=== PATIENT | male | born 1990 | race African-American/Black ===

== ENCOUNTER 2017-07-03 04:10 | Emergency (ER) | payer OTHER ==
[~2017-07-03] VITALS: Ht 170.2 cm; Wt 95.5 kg
[2017-07-03 04:50] LABS: BASO % 0.5 % (0.0-1.0); EOS # 0.6 K/mm3 (0.0-0.50); EOS % 5.4 % (0.0-3.0); LARGE UNSTAINED CELL # 0.2 K/mm3 (0.0-0.4); LARGE UNSTAINED CELL % 1.8 % (0.0-4.0); LYMPH # 4.6 K/mm3 (1.5-6.5); LYMPH % 41.2 % (24.0-44.0); MEAN CORPUSCULAR HEMOGLOBIN 31.9 pg (27.0-33.0); MEAN CORPUSCULAR HGB CONC 33.7 g/dl (32.0-36.5); MEAN CORPUSCULAR VOLUME 94.6 fl (80.0-96.0); MONO # 0.5 K/mm3 (0.0-0.8); MONO % 4.2 % (0.0-5.0); NEUTROPHILS % 46.8 % (36.0-66.0); PLATELET COUNT, AUTOMATED 224 k/mm3 (150-450); WHITE BLOOD COUNT 10.6 K/mm3 (4.0-10.0)
[2017-07-03 05:11] LABS: ALBUMIN 3.5 GM/DL (3.2-5.2); ALBUMIN/GLOBULIN RATIO 0.97 (1.00-1.93); ALKALINE PHOSPHATASE 71 U/L (45-117); ALT/SGPT 26 U/L (12-78); AMYLASE 27 U/L (25-115); ANION GAP 9 MEQ/L (8-16); AST/SGOT 16 U/L (15-37); BILIRUBIN,DIRECT 0.1 MG/DL (0.0-0.2); BILIRUBIN,TOTAL 0.6 MG/DL (0.2-1.0); BLOOD UREA NITROGEN 29 MG/DL (7-18); CALCIUM LEVEL 8.2 MG/DL (8.5-10.1); CARBON DIOXIDE LEVEL 24 MEQ/L (21-32); CHLORIDE LEVEL 110 MEQ/L (98-107); CREATININE FOR GFR 0.96 MG/DL (0.70-1.30); GLOMERULAR FILTRATION RATE > 60.0 (>60); GLUCOSE, FASTING 121 MG/DL (70-105); POTASSIUM SERUM 4.3 MEQ/L (3.5-5.1); SODIUM LEVEL 143 MEQ/L (136-145); TOTAL PROTEIN 7.1 GM/DL (6.4-8.2)
[2017-07-03] MEDS ORDERED: NS 1,000 ML IV ONE (06:45)
[2017-07-03] MEDS ORDERED: METOCLOPRAMIDE INJ 10MG/2ML VIAL (J2765) IV ONE (06:45)
[2017-07-03] MEDS ORDERED: PANTOPRAZOLE 40MG INJ (PROTONIX) (C9113) IV ONE (06:45)
[2017-07-03] MEDS ORDERED: ISOVUE-370 76% 100ML VIAL (Q9967) As Ordered ONE (06:50)
--- NOTE | 2017-07-03 07:40 | REPUSA ---
CLINICAL HISTORY: Coffee-ground emesis. TECHNIQUE: Multiple axial, sagittal and coronal CT images were obtained through the abdomen and pelvi s after administration of intravenous contrast material. COMMENTS: Diffusely thickened stomach. The liver is of uniform attenuation without mass or defect. There is no intra or extrahepatic biliary ductal dilatation. The spleen is normal. The gallbladder is within normal limits. The pancreas is of normal contour and attenuation characteristics. There is no evidence of adrenal mass. Both kidneys demonstrate prompt and equal nephrograms. The kidneys are normal in size, shape and conf iguration. There is no evidence of renal or ureteral mass. No renal or ureteral calculi are identifie d. There is no hydroureter or hydronephrosis. No evidence for appendicitis. There is no bowel wall thickening. No evidence for small or large mayra l obstruction. There is no evidence of abdominal ascites or lymphadenopathy. There is no evidence of intrinsic or extrinsic bladder mass. There is no pelvic ascites or lymphadeno zahida. Images of the lung bases show no evidence of pleural or parenchymal mass. There are no pleural effusi ons. The bony structures are free of lytic or blastic lesions. Multilevel degenerative changes are seen in volving the thoracolumbar spine. Scattered calcifications are seen involving the aorta and major bran ches compatible with atherosclerosis. IMPRESSION: Diffusely thickened stomach. Underdistention, peptic ulcer disease versus gastritis. Thank you for your kind referral of this patient.
[2017-07-03] MEDS ORDERED: OMEP40CA2 PO (08:10)
[2017-07-03 08:22] VITALS: BP 146/67
== END 2017-07-03 08:45 | disposition home or self-care (01) ==
LOC: M ED 04:10
DX: R11.2 Nausea with vomiting, unspecified (principal); Z87.19 Personal history of other diseases of the digestive system; J45.909 Unspecified asthma, uncomplicated; Z87.891 Personal history of nicotine dependence
CPT/HCPCS: 74177; 80048; 80076; 82150; 83690; 85025; 86850; 86900; 86901; 96361; 96374; 96375; 99284; C9113; J2765; Q9967

== ENCOUNTER 2017-07-05 23:06 | Inpatient (IN) | payer OTHER ==
[~2017-07-05] VITALS: Ht 170.2 cm; Wt 92.8 kg
[~2017-07-05 23:06] MED LIST: OMEP40CA2 PO
[2017-07-05] MEDS ORDERED: NS 1,000 ML IV ONE (23:30)
[2017-07-06] VITALS (22 sets, daily range): BP systolic 103–136; BP diastolic 54–77
[2017-07-06 00:08] LABS: BASO % 0.5 % (0.0-1.0); EOS # 0.4 K/mm3 (0.0-0.50); EOS % 3.8 % (0.0-3.0); LARGE UNSTAINED CELL # 0.1 K/mm3 (0.0-0.4); LARGE UNSTAINED CELL % 1.3 % (0.0-4.0); LYMPH # 2.8 K/mm3 (1.5-6.5); LYMPH % 24.7 % (24.0-44.0); MEAN CORPUSCULAR HEMOGLOBIN 32.7 pg (27.0-33.0); MEAN CORPUSCULAR HGB CONC 33.7 g/dl (32.0-36.5); MEAN CORPUSCULAR VOLUME 96.8 fl (80.0-96.0); MONO # 0.4 K/mm3 (0.0-0.8); NEUTROPHILS % 65.7 % (36.0-66.0); PLATELET COUNT, AUTOMATED 155 k/mm3 (150-450); RED CELL DISTRIBUTION WIDTH 12.9 % (11.5-14.5); WHITE BLOOD COUNT 10.6 K/mm3 (4.0-10.0)
[2017-07-06 00:18] LABS: ALBUMIN 2.8 GM/DL (3.2-5.2); ALBUMIN/GLOBULIN RATIO 0.97 (1.00-1.93); ALKALINE PHOSPHATASE 50 U/L (45-117); ALT/SGPT 27 U/L (12-78); ANION GAP 5 MEQ/L (8-16); AST/SGOT 26 U/L (15-37); BILIRUBIN,DIRECT < 0.1 MG/DL (0.0-0.2); BILIRUBIN,TOTAL 0.1 MG/DL (0.2-1.0); BLOOD UREA NITROGEN 23 MG/DL (7-18); CALCIUM LEVEL 7.8 MG/DL (8.5-10.1); CARBON DIOXIDE LEVEL 27 MEQ/L (21-32); CHLORIDE LEVEL 111 MEQ/L (98-107); CREATININE FOR GFR 1.04 MG/DL (0.70-1.30); GLOMERULAR FILTRATION RATE > 60.0 (>60); GLUCOSE, FASTING 101 MG/DL (70-105); POTASSIUM SERUM 3.8 MEQ/L (3.5-5.1); SODIUM LEVEL 143 MEQ/L (136-145); TOTAL PROTEIN 5.7 GM/DL (6.4-8.2)
[2017-07-06] MEDS ORDERED: OMEP40CA2 PO (00:57)
[2017-07-06] MEDS ORDERED: ONDANSETRON 4MG/2ML VIAL (J2405) IV PRN (01:15)
[2017-07-06 01:27] LABS: INR 1.16
[2017-07-06] MEDS: PANTOPRAZOLE SODIUM 40 MG in D5W MINI-BAG PLUS 50 ML IV SCH ×5 (01:53→21:15)
--- NOTE | 2017-07-06 02:38 | HPE ---
DATE OF ADMISSION: 07/06/2017 PRIMARY CARE PHYSICIAN: Brionna Nelson. CHIEF COMPLAINT: Hematemesis. HISTORY OF THE PRESENT ILLNESS: The patient is a 27-year-old man who back in 2010 had symptoms of lightheadedness, dizziness, shortness of breath upon exertion while living in [place]. He presented to the emergency room there and had an endoscopy and was found to have low blood levels and received blood transfusions. He had two scopes and tells me that he was found to have two ulcers in his small intestine, as well as one at the gastroesophageal junction as well. He was on omeprazole following this for 6 months and when his symptoms resolved, he was taken off all medications. He was in his usual state of health, he is an active duty soldier, and then on Tuesday, he began to have similar symptoms of lightheadedness when standing and weakness. He presented to the emergency room at that time. He was found to have a hemoglobin of 12.5. He was started on omeprazole. A CT scan of the abdomen and pelvis revealed diffusely thickened stomach, underdistention, peptic ulcer disease versus gastritis and the patient was discharged with followup with Dr. Guerrero. The patient was actually seen in Dr. Guerrero's clinic today and was scheduled for an endoscopy to be conducted on 07/19/2017; however, after eating a pot pie, he began having nausea, vomiting and hematemesis. He was also noted to have some blood in his stool and prompting him to re-present to the emergency room. His hemoglobin was found to be 7.4 down from 13.3 only 2 days earlier with symptoms of anemia. The hospitalist service was called. PAST MEDICAL HISTORY: Gastrointestinal (GI) bleed. Duodenal ulcers. Gastroesophageal ulcers. HOME MEDICATIONS: - omeprazole started on Tuesday ALLERGIES: GRASS and PRIMAQUINE. SURGICAL HISTORY: Esophagogastroduodenoscopy (EGD) as outlined above in 2010. FAMILY HISTORY: No evidence of peptic ulcer disease or bleeding dyscrasias. SOCIAL HISTORY: He smokes slightly less than one pack of cigarettes per day for the last 3 years. Denies alcohol or illicit drug use. He drinks one 24-ounce [employer] Drink per day. REVIEW OF SYSTEMS: 10-point review of systems has been completed but negative other than in the history of the present illness (HPI). PHYSICAL EXAMINATION: VITAL SIGNS: Temperature 99.2, heart rate 92, respiratory rate 20, blood pressure 137/83, oxygen saturation (O2) 100% on room air. GENERAL: He is a very pleasant, muscular, -Faroese man laying flat in bed. He does not appear to be in any acute distress. He is comfortable at this time. HEENT: Cranial nerves II-XII are grossly intact. He has moist mucous membranes. No elevation of central venous pressure (CVP). CARDIOVASCULAR EXAM: S1, S2, regular. No distant heart sounds appreciated. He is not tachycardic. RESPIRATORY EXAM: Clear. ABDOMINAL EXAM: Bowel sounds are present. The abdomen is soft. There is tenderness to palpation in the epigastric region. EXTREMITIES: No clubbing, cyanosis or edema. He is muscular. LABORATORY STUDIES: WBC 10.6, hemoglobin 7.4, platelet count 155. Chemistry panel: Sodium 143, potassium 3.8, chloride 111, bicarbonate 27, BUN 23, creatinine 1.0. IMAGING: As outlined above. ASSESSMENT AND PLAN: This is a 27-year-old man with a gastrointestinal (GI) bleed. Problems: 1. GI bleed. Given his history, there is certainly concern for an upper GI source. He has been seen by Dr. Guerrero today. I recommend Dr. Guerrero be contacted early this morning to see if the patient can undergo inpatient endoscopy. The patient received two units of packed red blood cells for symptomatic anemia, acute blood loss anemia related to GI bleed. The patient will also be started on Protonix drip. Will check orthostatics and admit him to the progressive care unit to Dr. Barron's service. The patient will be kept nothing by mouth (n.p.o.) except for Carafate. Will check a PT/INR and provide him with Zofran as needed. Will hold his home omeprazole as he is receiving a continuous Protonix infusion. After endoscopy, should the patient have continued recurrences, then he could have workup completed through outpatient GI for other potential hypergastric conditions for peptic ulcer disease. 2. Deep vein thrombosis (DVT) prophylaxis. Sequentials and thromboembolism deterrents (TEDs). No pharmacological agents in the setting of bleeding. Early ambulation. DISPOSITION: The patient is admitted to the progressive care unit to Dr. Barron's service who will continue monitoring the patient at 7:00 a.m. [facility]
[2017-07-06] MEDS: SUCRALFATE 1 GM TAB PO SCH ×5 (08:24→21:15)
[2017-07-06 09:58] LABS: BASO % 0.5 % (0.0-1.0); EOS # 0.4 K/mm3 (0.0-0.50); EOS % 4.2 % (0.0-3.0); LARGE UNSTAINED CELL # 0.1 K/mm3 (0.0-0.4); LARGE UNSTAINED CELL % 1.4 % (0.0-4.0); LYMPH # 2.8 K/mm3 (1.5-6.5); LYMPH % 27.2 % (24.0-44.0); MEAN CORPUSCULAR HEMOGLOBIN 31.5 pg (27.0-33.0); MEAN CORPUSCULAR HGB CONC 32.9 g/dl (32.0-36.5); MEAN CORPUSCULAR VOLUME 95.6 fl (80.0-96.0); MONO # 0.4 K/mm3 (0.0-0.8); NEUTROPHILS # 6.2 K/mm3 (1.8-7.7); NEUTROPHILS % 62.8 % (36.0-66.0); PLATELET COUNT, AUTOMATED 148 k/mm3 (150-450); WHITE BLOOD COUNT 9.9 K/mm3 (4.0-10.0)
[2017-07-06 10:17] LABS: ANION GAP 8 MEQ/L (8-16); BLOOD UREA NITROGEN 21 MG/DL (7-18); CALCIUM LEVEL 8.2 MG/DL (8.5-10.1); CARBON DIOXIDE LEVEL 24 MEQ/L (21-32); CHLORIDE LEVEL 113 MEQ/L (98-107); CREATININE FOR GFR 0.88 MG/DL (0.70-1.30); GLOMERULAR FILTRATION RATE > 60.0 (>60); GLUCOSE, FASTING 82 MG/DL (70-105); POTASSIUM SERUM 4.2 MEQ/L (3.5-5.1); SODIUM LEVEL 145 MEQ/L (136-145)
[2017-07-06] MEDS ORDERED: PROPOFOL 200 MG/20 ML VIAL As Ordered ONE (16:06)
[2017-07-06] MEDS ORDERED: LIDOCAINE 2% INJ 100 MG/5 ML SDV (FOR ANES.) As Ordered ONE (16:06)
--- NOTE | 2017-07-06 16:16 | ROOR ---
Patient Name: Sanchez Louis Procedure Date: 07/06/2017 3:44 PM Date of : 1990 Age: 27 Room: [facility] Gender: Male Note Status: Finalized Procedure: Upper Endoscopy + Heater Probe + Biopsies Indications: Active gastrointestinal bleeding Providers: Ervin Guerrero MD Referring MD: KAUR DIETRICH MD Requesting Provider: Medicines: Monitored Anesthesia Care Complications: No immediate complications. Procedure: Pre-Anesthesia Assessment: - The heart rate, respiratory rate, oxygen saturations, blood pressure, adequacy of pulmonary ventilation, and response to care were monitored throughout the procedure. The Endoscope was introduced through the mouth, and advanced to the second part of duodenum. The upper GI endoscopy was accomplished without difficulty. The patient tolerated the procedure well. Findings: The Z-line was irregular and was found 35 cm from the incisors. A small hiatal hernia was present. Moderately severe esophagitis with no bleeding was found 35 cm from the incisors. Biopsies were taken with a cold forceps for Helicobacter pylori testing. No other significant abnormalities were identified in a careful examination of the stomach. One non-bleeding cratered duodenal ulcer with a visible vessel was found in the first portion of the duodenum. Coagulation for bleeding prevention using heater probe was successful. Impression: - Z-line irregular, 35 cm from the incisors. - Small hiatal hernia. - Moderately severe erosive esophagitis. Biopsied. - One non-bleeding duodenal ulcer with a visible vessel. Treated with a heater probe. - The examination was otherwise normal. Recommendation: - Patient has a contact number available for emergencies. The signs and symptoms of potential delayed complications were discussed with the patient. Return to normal activities tomorrow. Written discharge instructions were provided to the patient. - [facility]. - Follow an antireflux regimen. - Await pathology results. - The findings and recommendations were discussed with the referring physician. - The findings and recommendations were discussed with the patient. Ervin Guerrero MD Ervin Guerrero MD 07/06/2017 4:16:20 PM This report has been signed electronically. Number of Addenda: 0 Note Initiated On: 07/06/2017 3:44 PM Estimated Blood Loss: Estimated blood loss: none.
[2017-07-07] MEDS: PANTOPRAZOLE SODIUM 40 MG in D5W MINI-BAG PLUS 50 ML IV SCH (02:23)
[2017-07-07 04:45] VITALS: BP 114/54
[2017-07-07 05:35] LABS: MEAN CORPUSCULAR HEMOGLOBIN 32.2 pg (27.0-33.0); MEAN CORPUSCULAR HGB CONC 34.9 g/dl (32.0-36.5); MEAN CORPUSCULAR VOLUME 92.3 fl (80.0-96.0); RED CELL DISTRIBUTION WIDTH 15.3 % (11.5-14.5); WHITE BLOOD COUNT 7.9 K/mm3 (4.0-10.0)
[2017-07-07 05:45] LABS: ANION GAP 8 MEQ/L (8-16); BLOOD UREA NITROGEN 16 MG/DL (7-18); CALCIUM LEVEL 8.2 MG/DL (8.5-10.1); CARBON DIOXIDE LEVEL 26 MEQ/L (21-32); CHLORIDE LEVEL 110 MEQ/L (98-107); CREATININE FOR GFR 1.01 MG/DL (0.70-1.30); GLOMERULAR FILTRATION RATE > 60.0 (>60); GLUCOSE, FASTING 90 MG/DL (70-105); POTASSIUM SERUM 3.8 MEQ/L (3.5-5.1); SODIUM LEVEL 144 MEQ/L (136-145)
[2017-07-07] MEDS: SUCRALFATE 1 GM TAB PO SCH ×4 (07:46→20:14)
[2017-07-07 08:00] VITALS: BP 121/56
[2017-07-07] MEDS: PANTOPRAZOLE 40MG TAB (PROTONIX) PO SCH ×2 (09:48→20:13)
[2017-07-07 12:30] VITALS: BP 138/72
[2017-07-07 14:00] VITALS: BP 141/68
--- NOTE | 2017-07-07 18:39 | IPN ---
DATE: 07/06/2017 The patient underwent esophagogastroduodenoscopy (EGD) yesterday which showed moderately severe esophagitis with no bleeding at 35 cm from incisors, one non-bleeding crater duodenal ulcer with a visible vessel in the first portion of the duodenum, status post heater probed coagulation, small hiatal hernia. The patient was kept nothing by mouth with ice chips until morning and currently advanced on clear full liquid diet. He denies any recurrent hematemesis, bright red blood per rectum, melanotic stools. Denies dizziness, chest pain, pressure or tightness, palpitations. No issues on telemetry. He remains in sinus rhythm with ventricular rate of 62-73. Afebrile. VITAL SIGNS: Temperature 98.5, pulse 60, respiratory rate 18, blood pressure 114/54, 99% on room air. GENERAL: Awake, alert, and oriented times three. No pallor or icterus. LUNGS: Clear to auscultation. No wheezing, rales, or rhonchi. HEART: S1, S2, sinus rhythm. ABDOMEN: Soft, nontender, nondistended. Positive bowel sounds. EXTREMITIES: No clubbing, cyanosis, or pitting edema. LABORATORY DATA: White count 7.9, hemoglobin 9.7, hematocrit 27.9, platelet count 166. Sodium 144, potassium 3.8, chloride 110, bicarbonate 26, BUN 16, creatinine 1, glucose of 90. EGD 07/06/2017 shows moderately severe esophagitis, small hiatal hernia, non-bleeding duodenal ulcer with visible vessel status post heater probe coagulation. ASSESSMENT AND PLAN: This is a 27-year-old male with history of multiple duodenal ulcers, off proton pump inhibitor (PPI), who presented to the emergency room with symptomatic anemia, found to have a hemoglobin of 7, status post three units of leukocyte reduced red blood cell transfusion. Esophagogastroduodenoscopy (EGD) shows small hiatal hernia, moderately severe esophagitis with no bleeding, one non-bleeding duodenal ulcer with visible vessel treated with heater probe. CURRENT ISSUES: 1. Acute blood loss anemia, secondary to duodenal ulcer, moderately severe erosive esophagitis. The patient is status post esophagogastroduodenoscopy (EGD) and has done well overnight with nothing by mouth and ice chips. Currently advanced on clear full liquid diet and soft mechanical throughout the day today. Hemoglobin and hematocrit remain stable status post three units of red blood cell transfusion. He is continue on Carafate before food and at bedtime as well as proton pump inhibitor (PPI) twice a day with Protonix 40 mg. Biopsies have been taken to rule out Helicobacter (H) pylori. Appreciate Dr. Guerrero's input and help with management. Outpatient followup at hospital discharge. 2. Moderately severe erosive esophagitis/duodenal ulcer, non-bleeding with visible vessel status post heater probe coagulation. The patient should followup with Dr. Guerrero as outpatient. Continue on Carafe, PPI twice a day. Advance diet. Monitor hemoglobin and hematocrit. He appears to be stabilized after three units of red blood cell transfusion. 3. Deep vein thrombosis (DVT) prophylaxis with compression stockings. DISPOSITION: The patient will be transferred to medical/surgical floor. Await recommendations from Dr. Guerrero. If the patient cannot be discharged today, we will monitor for another 24 hours.
[2017-07-07 20:30] VITALS: BP 137/62
[2017-07-07 20:42] VITALS: BP 131/58
[2017-07-08] VITALS: BP 117/56
[2017-07-08 07:03] LABS: MEAN CORPUSCULAR HEMOGLOBIN 31.4 pg (27.0-33.0); MEAN CORPUSCULAR HGB CONC 33.7 g/dl (32.0-36.5); MEAN CORPUSCULAR VOLUME 93.4 fl (80.0-96.0); RED CELL DISTRIBUTION WIDTH 15.1 % (11.5-14.5); WHITE BLOOD COUNT 6.8 K/mm3 (4.0-10.0)
[2017-07-08 07:22] LABS: ANION GAP 9 MEQ/L (8-16); BLOOD UREA NITROGEN 14 MG/DL (7-18); CALCIUM LEVEL 8.5 MG/DL (8.5-10.1); CARBON DIOXIDE LEVEL 26 MEQ/L (21-32); CHLORIDE LEVEL 110 MEQ/L (98-107); CREATININE FOR GFR 1.04 MG/DL (0.70-1.30); GLOMERULAR FILTRATION RATE > 60.0 (>60); GLUCOSE, FASTING 91 MG/DL (70-105); POTASSIUM SERUM 3.9 MEQ/L (3.5-5.1); SODIUM LEVEL 145 MEQ/L (136-145)
[2017-07-08] MEDS ORDERED: PANT40TA2 PO (07:24)
[2017-07-08] MEDS ORDERED: SUCR1TA PO (07:24)
[2017-07-08 08:00] VITALS: BP 136/67
[2017-07-08] MEDS: SUCRALFATE 1 GM TAB PO SCH ×2 (08:18→12:01)
[2017-07-08] MEDS: PANTOPRAZOLE 40MG TAB (PROTONIX) PO SCH (09:35)
--- NOTE | 2017-07-09 12:51 | DSES ---
DATE OF ADMISSION: 07/06/2017 DATE OF DISCHARGE: 07/08/2017 TOOL AND CUTTER GRINDER: Dr. Ervin Guerrero, Finished Cloth Checker. PROCEDURES: Esophagogastroduodenoscopy (EGD). DISCHARGE DIAGNOSES: Duodenal ulcer. Small hiatal hernia. Moderate severe esophagitis. DISCHARGE MEDICATIONS: - Protonix 40 mg twice daily - Carafate 1 gram by mouth before meals and at bedtime DISCHARGE INSTRUCTIONS: Avoid non-steroidal anti-inflammatory drugs (NSAID)s. Acetaminophen for pain relief. Immediate followup with primary care physician and Dr. Guerrero to discuss pathology reports. HOSPITAL COURSE: This is a 27-year-old male with history of multiple duodenal ulcers in the past. Has been off PPI for several months. Presents to the emergency room with symptomatic anemia. Found to have hemoglobin of 7 with black tatty stools and hematemesis. He was transfused 3 units of leukocyte reduced red blood cell transfusion with subsequent improvement in hemoglobin to discharge of 9.6 and hematocrit of 28.6. He underwent EGD, found to have a small hiatal hernia and moderately severe esophagitis and one small duodenal ulcer which was cauterized using a heater probe. Patient was instructed to advance diet slowly, placed on a PPI initially as a drip and currently at 40 mg orally twice daily of Protonix as well as Carafate 1 gram before meals and at hour of sleep. Patient has improvement over the next 48 hours. No repeat episodes of black tarry stools or hematemesis. Tolerating his diet well with soft mechanical diet. Followup with Dr. Guerrero as outpatient to discuss the pathology reports from biopsy of the EGD, rule out H. Pylori antibody. LABS ON DISCHARGE: White count 6.8, hemoglobin 9.6, hematocrit 28.6, platelet count 204. Sodium 145, potassium 3.9, chloride 110, bicarbonate 26, BUN 14, creatinine 1, glucose 91, calcium 8.5. Hemoccult stool was positive. CT abdomen and pelvis 07/03/2017: Diffusely thick stomach on distention, peptic ulcer disease versus gastritis. TIME SPENT ON DISCHARGE: 30 minutes. MTDD
--- NOTE | 2017-07-09 20:48 | CR ---
DATE OF CONSULTATION: 07/06/2017 REASON FOR CONSULTATION: This is a 27-year-old white male who was seen in my office previously for a history of lightheadedness and dizziness. 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 He received blood in 2010. He had a CT scan of the abdomen which showed thickened stomach wall of unclear reason. He was stable in the office yesterday and had a previous CT which showed inflammation of the stomach. Upper endoscopy was scheduled for July. Right now he presented with overnight with history of hematemesis and his hemoglobin fell to 7.4. No apparent complaints of abdominal pain, weight loss, fevers, night sweats, or shaking chills. PAST MEDICAL HISTORY: As above. GI bleeding previously with ulcers. MEDICATIONS: The patient started omeprazole on Tuesday. ALLERGIES: PRIMAQUINE. PAST SURGICAL HISTORY: As above. Esophagogastroduodenoscopy (EGD) in 2010. FAMILY HISTORY: Noncontributory. SOCIAL HISTORY: The patient smokes less than a Pack of cigarettes a day over the last three years. Alcohol: Denies alcohol abuse. REVIEW OF SYSTEMS: Noncontributory. PHYSICAL EXAMINATION: GENERAL: Well-developed, well-nourished male in no acute distress. Appears stated age. CHEST: Clear to auscultation. CARDIOVASCULAR: Showed regular rhythm, no murmurs or gallops. Normal physiological split S1 to S2. ABDOMEN: Soft, nontender. No masses. No guarding, rebound or hepatosplenomegaly, with bowel sounds positive. EXTREMITIES: No cyanosis, clubbing or edema. Ad's negative. LABORATORY DATA ON ADMISSION: Again showed a hemoglobin 7.4, hematocrit 22.0. The patient will be given packed cells to replenish this. His coagulation profile was normal. INR 1.16. Chemistry was completely normal with albumin 2.8. Liver functions were normal. BUN was 23, creatinine was one. ANALYSIS: 1. Hematemesis. 2. Anemia of unknown etiology at the present time. PLAN: 1. Maintain the patient on Protonix IV. 2. Transfuse as needed. 3. Upper endoscopy will be scheduled.
== END 2017-07-08 12:15 | disposition home or self-care (01) | DRG 384 ==
LOC: M ED 23:06 → EDBD 23:06 → M ED INP 07-06 01:02 → M PCU 07-06 16:50 → M MSPAV 07-07 12:26 → M PED 07-07 20:35
PROVIDERS: ADMIT Internal Medicine; ATTEND General Practice
PROC: 0D598ZZ Destruction of Duodenum, Via Natural or Artificial Opening Endoscopic (ICD-10-PCS; 2017-07-06)
PROC: 30233N1 Transfusion of Nonautologous Red Blood Cells into Peripheral Vein, Percutaneous Approach (ICD-10-PCS; 2017-07-06)
PROC: 0DB78ZX Excision of Stomach, Pylorus, Via Natural or Artificial Opening Endoscopic, Diagnostic (ICD-10-PCS; principal; 2017-07-06 15:12)
DX: K26.9 Duodenal ulcer, unspecified as acute or chronic, without hemorrhage or perforation (principal); D62 Acute posthemorrhagic anemia; K20.9 Esophagitis, unspecified; K44.9 Diaphragmatic hernia without obstruction or gangrene; Z79.899 Other long term (current) drug therapy; Z88.8 Allergy status to other drugs, medicaments and biological substances; J30.1 Allergic rhinitis due to pollen; F17.210 Nicotine dependence, cigarettes, uncomplicated

== ENCOUNTER 2017-10-08 22:05 | Inpatient (IN) | payer OTHER ==
[~2017-10-08] VITALS: Ht 170.2 cm; Wt 88.9 kg
[~2017-10-08 22:05] MED LIST changes: +PANT40TA2 PO; +SUCR1TA PO
[2017-10-08] MEDS ORDERED: PANTOPRAZOLE 40MG INJ (PROTONIX) (C9113) IV ONE (23:15)
[2017-10-08] MEDS ORDERED: NS 1,000 ML IV ONE (23:15)
[2017-10-08 23:38] LABS: BASO # 0.1 10^3/uL (0.0-0.2); BASO % 0.4 % (0.0-1.0); EOS # 0.4 10^3/uL (0.0-0.50); EOS % 3.8 % (0.0-3.0); IMMATURE GRANULOCYTE % 0.3 % (0-0); LYMPH # 1.9 10^3/uL (1.5-6.5); LYMPH % 17.1 % (24.0-44.0); MEAN CORPUSCULAR HEMOGLOBIN 22.9 pg (27.0-33.0); MEAN CORPUSCULAR HGB CONC 30.6 g/dl (32.0-36.5); MEAN CORPUSCULAR VOLUME 74.8 fl (80.0-96.0); MONO # 0.7 10^3/uL (0.0-0.8); MONO % 6.2 % (0.0-5.0); NEUTROPHILS # 8.1 10^3/uL (1.8-7.7); NEUTROPHILS % 72.2 % (36.0-66.0); PLATELET COUNT, AUTOMATED 186 10^3/uL (150-450); RED CELL DISTRIBUTION WIDTH 19.7 % (11.5-14.5); WHITE BLOOD COUNT 11.3 10^3/uL (4.0-10.0)
[2017-10-08 23:49] LABS: INR 1.29
[2017-10-08] MEDS ORDERED: PANT40TA2 PO (23:59)
[2017-10-08] MEDS ORDERED: SUCR1TA PO (23:59)
[2017-10-09] VITALS (9 sets, daily range): BP systolic 101–134; BP diastolic 53–75
[2017-10-09 01:31] LABS: ALBUMIN 3.5 GM/DL (3.2-5.2); ALBUMIN/GLOBULIN RATIO 0.85 (1.00-1.93); ALKALINE PHOSPHATASE 71 U/L (45-117); ALT/SGPT 19 U/L (12-78); ANION GAP 7 MEQ/L (8-16); AST/SGOT 16 U/L (7-37); BILIRUBIN,DIRECT < 0.1 MG/DL (0.0-0.2); BILIRUBIN,TOTAL 0.3 MG/DL (0.2-1.0); BLOOD UREA NITROGEN 24 MG/DL (7-18); CALCIUM LEVEL 8.6 MG/DL (8.5-10.1); CARBON DIOXIDE LEVEL 27 MEQ/L (21-32); CHLORIDE LEVEL 106 MEQ/L (98-107); CREATININE FOR GFR 0.92 MG/DL (0.70-1.30); GLOMERULAR FILTRATION RATE > 60.0 (>60); GLUCOSE, FASTING 93 MG/DL (70-105); POTASSIUM SERUM 4.2 MEQ/L (3.5-5.1); SODIUM LEVEL 140 MEQ/L (136-145); TOTAL PROTEIN 7.6 GM/DL (6.4-8.2)
--- NOTE | 2017-10-09 03:52 | HPE ---
DATE OF ADMISSION: 10/09/2017 The patient, Sanchez Louis, is a 27-year-old male. Patient comes in with a chief complaint of two episodes of bloody vomiting. HISTORY OF PRESENT ILLNESS: The patient has a recent history of gastrointestinal (GI) bleed with a duodenal ulcer and esophagitis. Patient recently discharged from our institution for that problem. Patient notes that today he had one episode of what he describes as bright red blood, hematemesis and one episode of coffee-ground emesis. Patient knew that given his history he should come to the emergency department (ED). Patient came in to the ED. Patient denies any constitutional symptoms. Denies any abdominal pain except when we press on his abdomen for physical exam. Patient to be admitted to medicine and evaluated by GI in the morning. REVIEW OF SYSTEMS: Patient does not complain of any other acute complaints on complete 10-system review. ALLERGIES: Patient with allergy to GRASS and PRIMAQUINE. Patient's home medications include pantoprazole and sucralfate, both to be continued. Patient without significant family history as per the patient. Patient is a light smoker, says he smokes up to three cigarettes a day. Non-drinker. LABORATORIES: WBC 11.3, hemoglobin and hematocrit 9.7/31.7, which is stable from his last checks prior to discharge. Platelet count is 186. Coagulation panel: PT 16.4, INR 1.29, aPTT 32.5. Sodium is 140, potassium 4.2, chloride 106, carbon dioxide 27, BUN/creatinine is 24/0.9, BUN elevated most likely secondary to GI bleed. IMAGING: Abdominal x-ray shows no apparent free air. ASSESSMENT AND PLAN: Patient is a 27-year-old male with previous medical history as noted above. Patient comes in with complaint of new onset gastrointestinal (GI) bleed that is recurrent from previous history. Continue with proton pump inhibitors (PPIs). To be evaluated by GI in the morning. Deep venous thrombosis (DVT) prophylaxis is not indicated at this time. Patient is ambulatory. Chemical prophylaxis would be contraindicated. Patient with active bleed. Gastroesophageal reflux disease (GERD) and GI prophylaxis with history of duodenal ulcer and esophagitis. Continue PPIs as noted above. Given the patient's active GI bleeding symptoms, as well as the need to monitor complete blood count (CBC), will do every six at this time, I believe patient likely to be here for greater than two midnights. Patient's dosing for PPIs will be intravenous (IV) twice a day secondary to GI recommendations. Patient to remain nothing by mouth pending GI evaluation. I first saw patient 10/09/2017.
[2017-10-09] MEDS: NS 1,000 ML IV SCH ×2 (04:24→12:47)
[2017-10-09] MEDS: SUCRALFATE 1 GM TAB PO SCH ×3 (05:52→17:28)
[2017-10-09 06:19] LABS: MEAN CORPUSCULAR HEMOGLOBIN 23.1 pg (27.0-33.0); MEAN CORPUSCULAR HGB CONC 30.9 g/dl (32.0-36.5); MEAN CORPUSCULAR VOLUME 74.8 fl (80.0-96.0); PLATELET COUNT, AUTOMATED 174 10^3/uL (150-450); RED CELL DISTRIBUTION WIDTH 19.6 % (11.5-14.5); WHITE BLOOD COUNT 8.9 10^3/uL (4.0-10.0)
[2017-10-09 06:25] LABS: INR 1.19
[2017-10-09 06:36] LABS: ALBUMIN 3.2 GM/DL (3.2-5.2); ALBUMIN/GLOBULIN RATIO 0.91 (1.00-1.93); ALKALINE PHOSPHATASE 69 U/L (45-117); ALT/SGPT 14 U/L (12-78); ANION GAP 7 MEQ/L (8-16); AST/SGOT 14 U/L (7-37); BILIRUBIN,TOTAL 0.5 MG/DL (0.2-1.0); BLOOD UREA NITROGEN 22 MG/DL (7-18); CALCIUM LEVEL 8.6 MG/DL (8.5-10.1); CARBON DIOXIDE LEVEL 25 MEQ/L (21-32); CHLORIDE LEVEL 110 MEQ/L (98-107); GLOMERULAR FILTRATION RATE > 60.0 (>60); GLUCOSE, FASTING 89 MG/DL (70-105); POTASSIUM SERUM 3.9 MEQ/L (3.5-5.1); SODIUM LEVEL 142 MEQ/L (136-145); TOTAL PROTEIN 6.7 GM/DL (6.4-8.2)
[2017-10-09] MEDS ORDERED: PANTOPRAZOLE 40MG INJ (PROTONIX) (C9113) IV SCH (09:00)
--- NOTE | 2017-10-09 09:59 | REP ---
Clinical: Epigastric and abdominal pain. Technique: Upright view of the chest with supine and upright views of the abdomen and pelvis. Findings: Frontal upright view of the chest demonstrates no acute cardiopulmonary process or free air below the diaphragm to suspect pneumoperitoneum. Supine and upright views of the abdomen and pelvis demonstrate nonspecific bowel gas pattern without obstruction or perforation. No organomegaly. No abnormal calcifications. Skeletal structures normal for age. Impression: Nonspecific bowel gas pattern. Signed by Abhishek Bui MD 10/09/2017 09:51 A
[2017-10-09 12:04] LABS: MEAN CORPUSCULAR HEMOGLOBIN 22.9 pg (27.0-33.0); MEAN CORPUSCULAR HGB CONC 30.3 g/dl (32.0-36.5); MEAN CORPUSCULAR VOLUME 75.7 fl (80.0-96.0); PLATELET COUNT, AUTOMATED 187 10^3/uL (150-450); RED CELL DISTRIBUTION WIDTH 19.8 % (11.5-14.5); WHITE BLOOD COUNT 7.5 10^3/uL (4.0-10.0)
--- NOTE | 2017-10-09 16:48 | CR.PDOC ---
[facility] Consultation Consultation DATE OF CONSULTATION: Oct 09, 2017 at 15:05 Primary physician/ hospitalist: Dr. Villa Reason for consult: GI bleeding. Hemetemsis. HPI: 27 year old male with no medical comorbidities, with recurrent episodes of upper GI bleeding inpast ( atleast twice last one in June 2017) came to ER for complaints of acute onset epigastric discomfort and vomiting of blood and another episode of coffee ground emesis. IN ER noted with anemia and GI was consulted for the same. Patient reports that he felt very weak after the episodes and currently feeling better. No further episodes of vomiting. Patient reports being compliant with Pantoprazole and denies using any OTC medications and Pain medications/ NSAIDs.. OFF note: patient reports similar episodes atleast twice in past and said he was tod possibility of excessive acid secretion but never was confirmed of the gastrinoma. Pertinent negative GI symptoms: Patient denies diarrhea, loss of appetite, early satiety or unintentional weight loss. No history of melena or hematochezia. Patient reports regular bowel movements. Review of Systems: GI: as stated above CVS: No chest pain, No palpitations, No leg swelling. RS: No Shortness of breath, No Wheezing, no cough ADMISSION NURSE: No dizziness, No motor weakness, No sensory problems Hematology: No bruising, No gum bleeding, Musculoskeletal: No joint pain, ambulating well. Skin: No rash : No hematuria, No burning sensation of the urine ENT: No ear discharge/ pain, No dysphagia. Eyes: No photophobia. Home medications: reviewed. Antithrombotic agents - None Medical h/o: As above. Surgical h/o: None on abdomen. Social h/o: Alcohol Denies , smokes cigarettes. , IVDA/ drugs Denies. . Family h/o of GI cancers - None Prior Endoscopies: --- EGD twice 2009 ( outside [facility]) and [address] Guerrero Noted duodenal ulcer treated with heater probe. Small hiatal hernia, esophagitis. H. pylori negative. --- Colonoscopy None. Prior GI evaluation: Follows with Dr. Guerrero. Exam: Vitals: reviewed General: Alert and oriented x 3, not in distress HEENT: Mild pallor, no icterus. Normal oropharynx, NO cervical lymph nodes. Chest: symmetric with bilateral clear air entry, CVS: S1, S2 heard, normal, no murmurs . Abdomen: non-distended, no surgical scars, soft, non-tender, no palpable masses , normal bowel sounds heard.. Extremities: no pedal edema, pulses palpable. ADMISSION NURSE: no focal motor or sensory deficits. Moves all extremities Skin: no rash. Labs: reviewed. Noted anemia with H/ H . Imaging: reviewed Impression: - Acute episode of hematemesis and coffee ground emesis Likely from PUD . Need to r/o AVM. Vs MWT. - Anemia likely from acute GI blood loss. Recommendations: - Patient educated about the test results, possible differential diagnoses and All questions answered. - Will continue with Pantoprazole drip/ intermittent pushes for now. - Will schedule for urgent EGD today. - The procedure, indications, risks (bleeding, perforation, infection, hypotension, respiratory depression, allergy, need for endotracheal intubation, surgery, colostomy, cardiac arrest, even ), benefits, limitations (e.g., missing a lesion), and all other alternatives (including no intervention) were explained to the patient who understood and agreed for the procedure. - Based on the EGD findings will need further work up for Possible hypergastrinemia and gastrinoma. Plan of care discussed with patient and primary team. Patient verbalized understanding and agreed with the plan. Allergies Coded Allergies: Grass (Verified Allergy, Unknown, 10/08/17) Primaquine (Verified Allergy, Unknown, unknown, 10/08/17) told by not to take this medication Home Medications Scheduled Pantoprazole Sodium (Pantoprazole Sodium) 40 Mg Tab, 40 MG PO BID, (Reported) Sucralfate (Carafate) 1 Gm Tab, 1 GM PO ACHS, (Reported) CLARISSA PARISI MD Oct 09, 2017 16:48
[2017-10-09 18:03] LABS: MEAN CORPUSCULAR HEMOGLOBIN 22.9 pg (27.0-33.0); MEAN CORPUSCULAR HGB CONC 30.3 g/dl (32.0-36.5); MEAN CORPUSCULAR VOLUME 75.4 fl (80.0-96.0); PLATELET COUNT, AUTOMATED 172 10^3/uL (150-450); RED CELL DISTRIBUTION WIDTH 19.8 % (11.5-14.5); WHITE BLOOD COUNT 6.9 10^3/uL (4.0-10.0)
[2017-10-09] MEDS ORDERED: PROPOFOL 200 MG/20 ML VIAL As Ordered ONE (18:45)
[2017-10-09] MEDS ORDERED: LIDOCAINE 2% INJ 100 MG/5 ML SYRINGE As Ordered ONE (18:45)
[2017-10-09] MEDS ORDERED: PANTOPRAZOLE SODIUM 40 MG in D5W 50 ML IV STA (19:08)
--- NOTE | 2017-10-09 19:24 | ROOR ---
Patient Name: Sanchez Louis Procedure Date: 10/09/2017 6:28 PM Date of : 1990 Age: 27 Gender: Male Note Status: Finalized Procedure: Upper GI endoscopy Indications: Suspected upper gastrointestinal bleeding, Hematemesis Providers: Antwan Chavez MD Referring MD: Hubert Villa Md Requesting Provider: Medicines: Monitored Anesthesia Care Complications: No immediate complications. Procedure: Pre-Anesthesia Assessment: - Prior to the procedure, a History and Physical was performed, and patient medications and allergies were reviewed. The patient is competent. The risks and benefits of the procedure and the sedation options and risks were discussed with the patient. All questions were answered and informed consent was obtained. Patient identification and proposed procedure were verified by the physician, the nurse and the anesthesiologist in the procedure room. Mental Status Examination: alert and oriented. Airway Examination: normal oropharyngeal airway and neck mobility. Respiratory Examination: clear to auscultation. CV Examination: normal. Prophylactic Antibiotics: The patient does not require prophylactic antibiotics. Prior Anticoagulants: The patient has taken no previous anticoagulant or antiplatelet agents. ASA Grade Assessment: II - A patient with mild systemic disease. After reviewing the risks and benefits, the patient was deemed in satisfactory condition to undergo the procedure. The anesthesia plan was to use monitored anesthesia care (MAC). Immediately prior to administration of medications, the patient was re-assessed for adequacy to receive sedatives. The heart rate, respiratory rate, oxygen saturations, blood pressure, adequacy of pulmonary ventilation, and response to care were monitored throughout the procedure. The physical status of the patient was re-assessed after the procedure. The Endoscope was introduced through the mouth, and advanced to the second part of duodenum. The upper GI endoscopy was accomplished without difficulty. The patient tolerated the procedure well. Findings: A small hiatal hernia was present. The entire examined stomach was normal. One non-bleeding cratered duodenal ulcer with oozing hemorrhage (Chau Class Ib) was found in the first portion of the duodenum. The lesion was 10 mm in largest dimension. Coagulation for hemostasis using heater probe was successful. Estimated blood loss was minimal. Localized mild mucosal changes characterized by nodularity and altered texture were found in the duodenal bulb. Biopsies were taken with a cold forceps for histology. Verification of patient identification for the specimen was done by the physician and nurse using the patient's name, date and medical record number. Estimated blood loss was minimal. Impression: - Small hiatal hernia. - Normal stomach. - One non-bleeding duodenal ulcer with oozing hemorrhage (Chau Class Ib). Treated with a heater probe. - Mucosal changes in the duodenum. Biopsied. Recommendation: - Patient has a contact number available for emergencies. The signs and symptoms of potential delayed complications were discussed with the patient. Return to normal activities tomorrow. Written discharge instructions were provided to the patient. - Clear liquid diet for 1 day, then advance as tolerated to resume previous diet. - Continue present medications. - Give Protonix (pantoprazole): initiate therapy with 80 mg IV bolus, then 8 mg/hr IV by continuous infusion for 1 day. - Use Protonix (pantoprazole) 40 mg PO twice daily - to be taken in morning (1/2 hour before breakfast) and at bedtime ( atleast 3 hours after last meal) for 3 months. - Return to GI clinic in 2 weeks. - Return to primary care physician. Attending Participation: I personally performed the entire procedure. Antwan Chavez MD Antwan Chavez MD 10/09/2017 7:24:19 PM This report has been signed electronically. Number of Addenda: 0 Note Initiated On: 10/09/2017 6:28 PM Estimated Blood Loss: Estimated blood loss was minimal.
[2017-10-09] MEDS ORDERED: PANTOPRAZOLE SODIUM 40 MG in D5W 50 ML IV SCH (20:00)
[2017-10-09] MEDS ORDERED: PANTOPRAZOLE 40MG INJ (PROTONIX) (C9113) IV ONE (20:30)
[2017-10-09] MEDS: PANTOPRAZOLE SODIUM IV SCH (20:52)
[2017-10-09] MEDS: MATE ADAPTER IV SCH (20:52)
[2017-10-09] MEDS: D5W IV SCH (20:52)
[2017-10-10] VITALS (8 sets, daily range): BP systolic 108–134; BP diastolic 44–66
[2017-10-10] LABS: MEAN CORPUSCULAR HEMOGLOBIN 22.9 pg (27.0-33.0); MEAN CORPUSCULAR HGB CONC 30.4 g/dl (32.0-36.5); MEAN CORPUSCULAR VOLUME 75.3 fl (80.0-96.0); PLATELET COUNT, AUTOMATED 170 10^3/uL (150-450); RED CELL DISTRIBUTION WIDTH 19.7 % (11.5-14.5); WHITE BLOOD COUNT 6.4 10^3/uL (4.0-10.0)
[2017-10-10] MEDS: SUCRALFATE 1 GM TAB PO SCH ×5 (00:52→23:45)
[2017-10-10] MEDS: MATE ADAPTER IV SCH ×5 (01:28→21:09)
[2017-10-10] MEDS: PANTOPRAZOLE SODIUM IV SCH ×5 (01:28→21:09)
[2017-10-10] MEDS: D5W IV SCH ×5 (01:28→21:09)
[2017-10-10 06:04] LABS: MEAN CORPUSCULAR HEMOGLOBIN 22.8 pg (27.0-33.0); MEAN CORPUSCULAR HGB CONC 30.5 g/dl (32.0-36.5); MEAN CORPUSCULAR VOLUME 74.8 fl (80.0-96.0); PLATELET COUNT, AUTOMATED 174 10^3/uL (150-450); RED CELL DISTRIBUTION WIDTH 19.9 % (11.5-14.5); WHITE BLOOD COUNT 5.9 10^3/uL (4.0-10.0)
[2017-10-10 06:10] LABS: INR 1.23
[2017-10-10 12:05] LABS: MEAN CORPUSCULAR HEMOGLOBIN 22.9 pg (27.0-33.0); MEAN CORPUSCULAR HGB CONC 30.5 g/dl (32.0-36.5); MEAN CORPUSCULAR VOLUME 75.2 fl (80.0-96.0); PLATELET COUNT, AUTOMATED 182 10^3/uL (150-450); RED CELL DISTRIBUTION WIDTH 20.2 % (11.5-14.5)
[2017-10-10] MEDS ORDERED: PANTOPRAZOLE 40MG INJ (PROTONIX) (C9113) As Ordered ONE (16:16)
--- NOTE | 2017-10-10 17:41 | IPN ---
DATE: 10/10/2017 SUBJECTIVE: The patient is seen and examined in the room today. The patient tolerated the upper endoscopy well without any issue. The patient denies any recurrence of upper GI bleed. The patient denies any dizziness, lightheadedness, chest pain, or shortness of breath. No overnight events reported. The patient tolerated diet well. OBJECTIVE : VITAL SIGNS: Temperature is 97.4, pulse is 66, respiration rate is 16, blood pressure is 108/44, pulse oximetry is 99% on room air. GENERAL: No sign of acute distress. Resting comfortably in bed. Alert and oriented times three. HEENT: Normocephalic, atraumatic. Extraocular motors grossly intact. CARDIOVASCULAR: Positive S1, S2. Regular rate. LUNGS: Clear to auscultation bilaterally. ABDOMEN: Soft, nontender, nondistended. Bowel sounds present. EXTREMITIES: No edema. No sign of cyanosis. LABORATORY DATA: WBC 6, hemoglobin 9.7, hematocrit 31.8, platelet count is 182. Sodium is 142, potassium 3.9, chloride 110, carbon dioxide 25, BUN 22, creatinine 0.9, GFR greater than 60, fasting glucose 89, calcium is 8.6, total bilirubin is 0.5, AST 14, ALT 14, alkaline phosphatase 69, total protein is 6.7, albumin is 3.2. ASSESSMENT AND PLAN: 1. Acute upper GI bleed. The patient had upper endoscopy performed by GI specialist, Dr. Chavez, on 10/09/2017. The patient was found to have duodenal ulcer with oozing hemorrhages, status post heated probe. Case discussed with Dr. Chavez, recommend 24 hour observation. If the patient does not have any recurrence of symptoms and the patient remains stable, the patient may be discharged tomorrow. 2. History of esophagitis. On Protonix and Carafate. 3. Deep vein thrombosis (DVT) prophylaxis. Encourage ambulation.
[2017-10-10 18:25] LABS: MEAN CORPUSCULAR HEMOGLOBIN 22.9 pg (27.0-33.0); MEAN CORPUSCULAR HGB CONC 30.4 g/dl (32.0-36.5); MEAN CORPUSCULAR VOLUME 75.6 fl (80.0-96.0); PLATELET COUNT, AUTOMATED 182 10^3/uL (150-450); WHITE BLOOD COUNT 5.8 10^3/uL (4.0-10.0)
[2017-10-11 00:58] LABS: MEAN CORPUSCULAR HEMOGLOBIN 22.7 pg (27.0-33.0); MEAN CORPUSCULAR HGB CONC 30.2 g/dl (32.0-36.5); MEAN CORPUSCULAR VOLUME 75.2 fl (80.0-96.0); PLATELET COUNT, AUTOMATED 190 10^3/uL (150-450); RED CELL DISTRIBUTION WIDTH 19.9 % (11.5-14.5); WHITE BLOOD COUNT 7.5 10^3/uL (4.0-10.0)
[2017-10-11 02:00] VITALS: BP 110/56
[2017-10-11] MEDS: PANTOPRAZOLE SODIUM IV SCH ×3 (02:11→12:34)
[2017-10-11] MEDS: D5W IV SCH ×3 (02:11→12:34)
[2017-10-11] MEDS: MATE ADAPTER IV SCH ×3 (02:11→12:34)
[2017-10-11] MEDS: SUCRALFATE 1 GM TAB PO SCH ×2 (05:38→12:51)
[2017-10-11 06:00] VITALS: BP 108/58
[2017-10-11 06:33] LABS: INR 1.23
[2017-10-11 10:00] VITALS: BP 121/59
[2017-10-11 14:00] VITALS: BP_SYST 127; BP_SYST 131; BP_DIAS 56; BP_DIAS 71
== END 2017-10-11 15:06 | disposition home or self-care (01) | DRG 378 ==
LOC: EDBD 22:05 → M ED 22:05 → M ED INP 10-09 02:47 → M MSPAV 10-09 04:08
PROVIDERS: ADMIT Internal Medicine; ATTEND Internal Medicine
PROC: 0DB98ZX Excision of Duodenum, Via Natural or Artificial Opening Endoscopic, Diagnostic (ICD-10-PCS; 2017-10-09)
PROC: 0W3P8ZZ Control Bleeding in Gastrointestinal Tract, Via Natural or Artificial Opening Endoscopic (ICD-10-PCS; principal; 2017-10-09 16:15)
DX: K26.4 Chronic or unspecified duodenal ulcer with hemorrhage (principal); D62 Acute posthemorrhagic anemia; K21.0 Gastro-esophageal reflux disease with esophagitis; J30.1 Allergic rhinitis due to pollen; F17.210 Nicotine dependence, cigarettes, uncomplicated; Z79.899 Other long term (current) drug therapy; Z88.8 Allergy status to other drugs, medicaments and biological substances; K44.9 Diaphragmatic hernia without obstruction or gangrene